=== PATIENT | male | born 1960 | race African-American/Black ===

== ENCOUNTER 2017-10-18 13:44 | Inpatient (IN) ==
[2017-10-18 14:31] LABS: Apearance,Urine CLEAR (Clear); Bacteria,Urine Occasional /HPF (Few); Bilirubin,Urine Negative (Negative); Blood, Urine Negative (Negative); Glucose,Urine (UA) Negative (Negative); Ketones,Urine Negative (Negative); Mucus,Urine Occasional /LPF (Occasional); Nitrite,Urine Negative (Negative); Protein,Urine 100 MG/DL; RBC,Urine <1 /HPF (0-4); Urine Color Yellow (Yellow); Urine Specific Gravity 1.008 (1.001-1.035); WBC,Urine 1 /HPF (0-6)
[2017-10-18] MEDS ORDERED: SODIUM CHLORIDE 0.9% 500 ML IV STA (14:35)
[2017-10-18 15:09] LABS: Basophils # 0.1 10*3/uL (0.0-0.2); Basophils % 0.9 % (0.0-0.8); Eosinophils # 0.1 10*3/uL (0.0-0.87); Hematocrit 28.8 VOL% (42.0-52.0); Hemoglobin 9.9 GM/DL (14.0-18.0); Immature Granulocytes % 0.7 %; Lymphocytes # 1.4 10*3/uL (1.4-4.0); Lymphocytes % 9.6 % (21.2-54.2); Mean Corpuscular HGB Conc 34.4 GM/DL (32-36); Mean Corpuscular Hemoglobin 31 PG (27-34); Mean Corpuscular Volume 90.3 FL (87-102); Mean Platelet Volume 10.8 FL (9.6-12.0); Monocytes # 2.2 10*3/uL (0.11-0.8); NRBC # 0.07 10*3/uL; Neutrophils # 10.5 10*3/uL (1.4-7.4); Neutrophils % 72.8 % (38.7-73.9); Platelet Count 465 T/CUMM (130-400); Red Blood Count 3.19 MC/CUMM (3.8-5.5); Red Cell Distribution Width 19.3 % (9.3-17.3); White Blood Count 14.4 T/CUMM (4-12)
[2017-10-18 16:57] LABS: Magnesium 2.3 MG/DL (1.8-2.4)
[2017-10-18 16:58] LABS: Albumin 3.5 G/DL (3.4-5.0); Bilirubin,Total 2.2 MG/DL (0.2-1.0); Calcium 8.7 MG/DL (8.5-10.1); Total Protein 8.9 G/DL (6.4-8.3)
[2017-10-18 16:59] LABS: Potassium 6.9 MMOL/L (3.5-5.1)
[2017-10-18] MEDS ORDERED: INSULIN REGULAR 100 UNIT/ML IV STA (17:24)
[2017-10-18] MEDS ORDERED: DEXTROSE 50% 25 GM/50 ML VIAL IV STA (17:24)
[2017-10-18] MEDS ORDERED: DEXTROSE 50% 25 GM/50 ML VIAL IV ONE (17:41)
[2017-10-18] MEDS ORDERED: INSULIN ASPART PROTAMINE/ASPART 70/30 100 UNIT/ML SUBCUT ONE (17:48)
[2017-10-18] MEDS ORDERED: guaiFENesin 200 MG/10 ML UDCUP PO PRN (18:33)
[2017-10-18] MEDS ORDERED: ONDANSETRON 4 MG/2 ML VIAL IV PRN (18:33)
[2017-10-18] MEDS ORDERED: BENZTROPINE 2 MG/2 ML AMP IV PRN (18:33)
[2017-10-18] MEDS ORDERED: LACTULOSE 20 GM/30 ML UDCUP PO PRN (18:33)
[2017-10-18] MEDS ORDERED: TEMAZEPAM 7.5 MG CAPSULE PO PRN (18:33)
[2017-10-18] MEDS ORDERED: LOPERAMIDE 2 MG CAPSULE PO PRN ×2 (18:33)
[2017-10-18] MEDS ORDERED: SODIUM POLYSTYRENE SULFATE 15 GM/60 ML BOTTLE PO STA (18:33)
[2017-10-18] MEDS ORDERED: ALPRAZolam 0.25 MG TABLET PO PRN (18:33)
[2017-10-18] MEDS ORDERED: ALUMINUM/MAGNES/SIMETH MAX STR 30 ML UDCUP PO PRN (18:33)
[2017-10-18] MEDS ORDERED: MYLANTA/LIDO VISC 2:1 300 ML BOTTLE SWISH/SWAL PRN (18:33)
[2017-10-18] MEDS ORDERED: diphenhydrAMINE CAP 25 MG CAPSULE PO PRN (18:33)
[2017-10-18] MEDS ORDERED: MAGNESIUM HYDROXIDE SUSP 30 ML UDCUP PO PRN (18:33)
[2017-10-18] MEDS ORDERED: ACETAMINOPHEN 325 MG TABLET PO PRN (18:33)
[2017-10-18] MEDS ORDERED: traMADol 50 MG TABLET PO PRN (18:33)
[2017-10-18] MEDS ORDERED: MYLANTA/LIDO VISC 2:1 300 ML BOTTLE SWISH/SPIT PRN (18:33)
[2017-10-18] MEDS: SODIUM CHLORIDE 0.9% 2,000 ML IV SCH (23:56)
[2017-10-19 05:48] LABS: Basophils # 0.1 10*3/uL (0.0-0.2); Basophils % 0.7 % (0.0-0.8); Eosinophils # 0.2 10*3/uL (0.0-0.87); Eosinophils % 1.2 % (0.00-10.9); Hematocrit 26.9 VOL% (42.0-52.0); Hemoglobin 9.1 GM/DL (14.0-18.0); Immature Granulocytes % 0.6 %; Immature Granulocytes Absolute 0.09 #; Lymphocytes # 1.7 10*3/uL (1.4-4.0); Lymphocytes % 11.5 % (21.2-54.2); Mean Corpuscular HGB Conc 33.8 GM/DL (32-36); Mean Corpuscular Hemoglobin 31 PG (27-34); Mean Corpuscular Volume 90.6 FL (87-102); Mean Platelet Volume 11.5 FL (9.6-12.0); Monocytes # 2.4 10*3/uL (0.11-0.8); Monocytes % 15.9 % (1.7-12.7); NRBC # 0.06 10*3/uL; Neutrophils # 10.4 10*3/uL (1.4-7.4); Neutrophils % 70.1 % (38.7-73.9); Platelet Count 446 T/CUMM (130-400); Red Blood Count 2.97 MC/CUMM (3.8-5.5); Red Cell Distribution Width 19.2 % (9.3-17.3); White Blood Count 14.8 T/CUMM (4-12)
[2017-10-19 06:13] LABS: Albumin 3.3 G/DL (3.4-5.0); Bilirubin,Total 2.3 MG/DL (0.2-1.0); Calcium 8.2 MG/DL (8.5-10.1); Osmolality,Calculated 301.4 MOS/KG (273-304); Potassium 5.9 MMOL/L (3.5-5.1); Total Protein 7.9 G/DL (6.4-8.3)
[2017-10-19 06:32] LABS: Eosinophils 1 % (0-10); Lymphocytes 6 % (20-55); Platelet Estimate Increased; Segmented Neutrophils 85 % (50-85); Total Cells Counted 100
[2017-10-19] MEDS ORDERED: oxyCODONE IR 5 MG TABLET PO PRN (09:35)
[2017-10-19] MEDS ORDERED: ONDANSETRON ODT 4 MG TABLET PO PRN (09:35)
[2017-10-19] MEDS ORDERED: MORPHINE ER 30 MG TABLET PO PRN (09:35)
[2017-10-19] MEDS ORDERED: ZALEPLON 5 MG CAPSULE PO PRN (09:35)
[2017-10-19] MEDS ORDERED: traMADol 50 MG TABLET PO PRN (09:35)
[2017-10-19] MEDS: PANTOPRAZOLE 40 MG TABLET PO SCH (10:26)
[2017-10-19] MEDS: SODIUM CHLORIDE 0.9% 1,000 ML IV SCH (18:43)
[2017-10-19] MEDS ORDERED: TAMSULOSIN 0.4 MG CAPSULE PO SCH (21:00)
[2017-10-19] MEDS: CARVEDILOL 25 MG TABLET PO SCH (21:57)
[2017-10-19] MEDS: OMEGA 3 ACID ETHYL ESTERS 1 GM CAPSULE PO SCH (21:58)
[2017-10-20] MEDS: SODIUM CHLORIDE 0.9% 1,000 ML IV SCH ×2 (03:36→03:43)
[2017-10-20] MEDS: SODIUM CHLORIDE 0.9% 2,000 ML IV SCH (03:36)
[2017-10-20 05:48] LABS: Basophils # 0.1 10*3/uL (0.0-0.2); Basophils % 0.8 % (0.0-0.8); Eosinophils # 0.5 10*3/uL (0.0-0.87); Eosinophils % 4.1 % (0.00-10.9); Hematocrit 24.8 VOL% (42.0-52.0); Hemoglobin 8.1 GM/DL (14.0-18.0); Immature Granulocytes % 0.5 %; Immature Granulocytes Absolute 0.06 #; Lymphocytes # 1.6 10*3/uL (1.4-4.0); Lymphocytes % 12.1 % (21.2-54.2); Mean Corpuscular HGB Conc 32.7 GM/DL (32-36); Mean Corpuscular Hemoglobin 31 PG (27-34); Mean Corpuscular Volume 93.9 FL (87-102); Mean Platelet Volume 10.9 FL (9.6-12.0); Monocytes # 2.1 10*3/uL (0.11-0.8); Monocytes % 15.6 % (1.7-12.7); NRBC # 0.03 10*3/uL; Neutrophils # 8.8 10*3/uL (1.4-7.4); Neutrophils % 66.9 % (38.7-73.9); Platelet Count 391 T/CUMM (130-400); Red Blood Count 2.64 MC/CUMM (3.8-5.5); Red Cell Distribution Width 19.3 % (9.3-17.3); White Blood Count 13.2 T/CUMM (4-12)
[2017-10-20 06:24] LABS: Albumin 2.9 G/DL (3.4-5.0); Bilirubin,Total 2.1 MG/DL (0.2-1.0); Calcium 8.3 MG/DL (8.5-10.1); Magnesium 1.8 MG/DL (1.8-2.4); Osmolality,Calculated 289.5 MOS/KG (273-304); Total Protein 7.1 G/DL (6.4-8.3)
[2017-10-20 06:52] LABS: Band Neutrophils 1 % (0-10); Eosinophils 4 % (0-10); Lymphocytes 14 % (20-55); Segmented Neutrophils 78 % (50-85); Total Cells Counted 100
[2017-10-20 06:53] LABS: Anisocytosis Slight; Elliptocytes Few; Poikilocytosis Few
[2017-10-20 06:54] LABS: Macrocytosis Slight; Platelet Estimate Increased
[2017-10-20] MEDS ORDERED: FOLIC ACID 1 MG TABLET PO SCH (09:00)
[2017-10-20] MEDS: CARVEDILOL 25 MG TABLET PO SCH (10:07)
[2017-10-20] MEDS: PANTOPRAZOLE 40 MG TABLET PO SCH (10:07)
[2017-10-20] MEDS: OMEGA 3 ACID ETHYL ESTERS 1 GM CAPSULE PO SCH (10:08)
[2017-10-20] MEDS ORDERED: SODIUM POLYSTYRENE SULFATE 15 GM/60 ML BOTTLE PO ONE (10:41)
[2017-10-20 12:18] VITALS: BP 152/87
== END 2017-10-20 14:34 | disposition home or self-care (01) | DRG 811 ==
LOC: N.EDINP 13:44 → N.ED 13:44 → N.TELES 18:23
PROVIDERS: ADMIT Specialist; ATTEND Specialist